=== PATIENT | female | born 1995 | race Caucasian/White ===

== ENCOUNTER 2016-11-26 03:36 | Emergency (ER) | payer BC ==
[~2016-11-26] VITALS: Ht 170.2 cm; Wt 59.1 kg
[~2016-11-26 03:36] MED LIST: CPR500T PO; PHEN-639 PO
--- OUTSIDE RECORDS SUMMARY | 2016-11-26 03:40 | XMS REPORT | Referral Summary ---
Author Author [facility] Organization [facility] Address Unknown Phone Unavailable Care Team Providers Care Lace Finisher Name Role Phone Evens Franklin PCP [phone] Encounter VC Date(s): 08/06/15 - 08/06/15 [facility] [address] [place] [address], [place] [address] Discharge Diagnosis: Right radial fracture Discharge Disposition: 01-Home or Self Care Attending Physician: Aristides Martines MD Admitting Physician: Aristides Martines MD Vital Signs Most recent to 1 oldest [Reference Range]: Temperature Oral 36.8 degC [35.8-37.3 degC] (08/06/15 4:58 AM) Peripheral Pulse 99 bpm Rate [60-100 bpm] (08/06/15 6:05 AM) Respiratory Rate 16 br/min [14-20 br/min] (08/06/15 6:05 AM) Blood Pressure 115/76 mmHg [90-140/60-90 mmHg] (08/06/15 6:05 AM) SpO2 98 % (08/06/15 6:05 AM) Problem List Condition Effective Dates Status Health Status Informant Asthma(Confirmed) Active patient Allergies, Adverse Reactions, Alerts Substance Reaction Severity Status HYDROcodone Vomiting Mild Active morphine Difficulty breathing Severe Active Medications Percocet 5/325 oral tablet 1 tabs, Oral, q6hr, X 4 days, # 16 tabs, 0 Refill(s) Start Date: 08/06/15 Stop Date: 08/10/15 Status: OrderedZofran ODT 4 mg oral tablet, disintegrating 4 mg 1 tabs, Oral, TID, X 3 days, # 10 tabs, 0 Refill(s) Start Date: 08/06/15 Stop Date: 08/09/15 Status: Ordered Results No data available for this section Immunizations No data available for this section Procedures No data available for this section Social History Social History Type Response Smoking Status Never smoker Assessment and Plan No data available for this section
[2016-11-26 03:52] VITALS: BP 115/81
[2016-11-26] MEDS ORDERED: NORG1TAB88 PO (03:57)
[2016-11-26] MEDS ORDERED: AMOX500C5 PO (04:09)
[2016-11-26] MEDS: AMOXICILLIN 500 MG (AMOXIL) CAPSULE PO ONE ×2 (04:14→04:19)
[2016-11-26] MEDS ORDERED: AMOXICILLIN SUSPENSION 250 MG/5 ML 80 ML BTL PO ONE (04:20)
[2016-11-26] MEDS ORDERED: ACETAMINOPHEN 500 MG TAB (TYLENOL) PO ONE (04:20)
[2016-11-26] MEDS ORDERED: ED- AMOXICILLIN 250MG/5ML SUSPENSION 80 ML BTL PO ONE (04:21)
== END 2016-11-26 04:28 | disposition home or self-care (01) ==
LOC: ED 04:01
DX: J20.9 Acute bronchitis, unspecified (principal)
CPT/HCPCS: 99282; 99283